=== PATIENT | male | born 1950 | race African-American/Black ===

== ENCOUNTER 2022-04-01 12:58 | Outpatient (CLI) | payer BC, MEDICARE | END 2022-04-01 12:59 | disposition home or self-care (01) | LOC: BICRAD 12:58 | PROVIDERS: ATTEND Podiatrist | DX: R60.0 Localized edema (principal); E11.9 Type 2 diabetes mellitus without complications; M10.9 Gout, unspecified; M79.89 Other specified soft tissue disorders ==